=== PATIENT | female | born 1980 | race Caucasian/White ===

== ENCOUNTER 2020-01-08 09:53 | Emergency (ER) | payer MEDICAID ==
[~2020-01-08] VITALS: Ht 175.3 cm; Wt 95.7 kg
[2020-01-08 10:06] VITALS: Ht 175.3 cm; Wt 95.7 kg
[2020-01-08 10:28] VITALS: BP 146/72
== END 2020-01-08 10:28 | disposition home or self-care (01) ==
LOC: ED 09:53
DX: L51.9 Erythema multiforme, unspecified (principal)